=== PATIENT | female | born 1960 | race Caucasian/White ===

== ENCOUNTER 2020-11-01 06:37 | Observation (INO) ==
[2020-11-01] MEDS ORDERED: *HR* FentaNYL (PF) 100 MCG/2 ML VIAL ONE (06:44)
[2020-11-01] MEDS ORDERED: Lidocaine -MPF 2% 2 ML VIAL ONE (06:44)
[2020-11-01] MEDS ORDERED: Dexamethasone 4 MG/ML VIAL ONE (06:44)
[2020-11-01] MEDS ORDERED: *HR* Succinylcholine 200 MG/10 ML VIAL IVP ONE (06:44)
[2020-11-01] MEDS ORDERED: Ondansetron 4 MG/2 ML VIAL ONE (06:44)
[2020-11-01] MEDS ORDERED: *HR* Propofol 200 MG/20 ML VIAL IVP ONE (06:44)
[2020-11-01] MEDS ORDERED: Lidocaine -MPF 4% 5 ML AMPUL ONE (06:44)
[2020-11-01] MEDS ORDERED: *HR* Remifentanil 1 MG VIAL IVP ONE ×2 (06:45)
[2020-11-01] MEDS ORDERED: *HR* Rocuronium Bromide 50 MG/5 ML VIAL ONE (06:55)
[2020-11-01] MEDS ORDERED: CeFAZolin Syr 3,000MG/30 ML 3,000 MG/30 ML SYRINGE IVPB ONE (07:04)
[2020-11-01] MEDS ORDERED: Ondansetron 4 MG/2 ML VIAL IVP PRN ×2 (07:07→11:32)
[2020-11-01] MEDS ORDERED: *HR* HYDROmorphone PF 0.5 MG/0.5 ML SYRINGE IVP PRN (07:07)
[2020-11-01] MEDS ORDERED: *HR* OxyCODONE Immed Rel 5 MG TABLET PO PRN ×2 (07:07→11:32)
[2020-11-01] MEDS ORDERED: *HR* OxyCODONE ER (12 HR) 10 MG TABLET PO ONE (07:10)
[2020-11-01] MEDS ORDERED: *HR* Vasopressin 20 UNIT/ML VIAL ONE (07:13)
[2020-11-01] MEDS ORDERED: Ringers Solution, Lactated 1,000 ML IVC SCH ×3 (07:15→11:32)
[2020-11-01] MEDS ORDERED: Bacitracin 50,000 UNIT, Polymyxin B Sulfate 500,000 UNIT, Sodium Chloride IRRigation 1,... IR ONE (07:45)
[2020-11-01] MEDS ORDERED: *HR* PHENYLEPHRINE 1,000 MCG/10 ML SYRINGE IVP ONE ×2 (08:21→08:46)
[2020-11-01] MEDS ORDERED: *HR* HYDROMORPHONE 2 MG/ML VIAL ONE (10:32)
[2020-11-01] MEDS ORDERED: Acetaminophen 325 MG TABLET PO PRN (11:32)
[2020-11-01] MEDS ORDERED: Naloxone 0.4 MG/ML INJ IVP PRN (11:32)
[2020-11-01] MEDS: *HR* HYDROcodone/Acet 5/325 mg TABLET PO PRN ×2 (15:24→22:00)
[2020-11-01] MEDS: CeFAZolin 2 GM/120 ML BAG IVPB SCH (16:23)
[2020-11-01 16:39] LABS: Hematocrit 38.8 % (35.3-44.9); Hemoglobin 11.8 g/dL (11.5-15.4); Mean Corpuscular HGB Conc 30.4 g/dL (31.6-35.5); Mean Corpuscular Hemoglobin 25.8 pg (28.0-33.3); Mean Corpuscular Volume 84.7 fL (83.0-100.0); Mean Platelet Volume 9.6 fL (9.4-12.4); Platelet Count 322 K/mcL (140-400); Red Blood Count 4.58 M/mcL (3.82-4.97)
[2020-11-01 16:41] LABS: White Blood Count 14.4 K/mcL (4.3-11.1)
[2020-11-01 16:53] LABS: Alanine Aminotransferase 10 Units/L (7-52); Albumin 3.8 g/dL (3.5-5.7); Albumin/Globulin Ratio 1.4 (1.1-2.2); Alkaline Phosphatase 77 Units/L (34-104); Aspartate Amino Transferase 12 Units/L (13-39); BUN/Creatinine Ratio 23 (6-26); Bilirubin,Total 0.3 mg/dL (0.3-1.0); Blood Urea Nitrogen 21 mg/dL (8-23); Calcium 8.8 mg/dL (8.6-10.3); Carbon Dioxide 23 mEq/L (23-29); Chloride 101 mEq/L (98-107); Globulin 2.7 g/dL (2.4-3.5); Glucose 251 mg/dL (70-105); Osmolality,Calculated 289 (280-300); Potassium 4.5 mEq/L (3.5-5.1); Sodium 134 mEq/L (136-145); Total Protein 6.5 g/dL (6.4-8.9); eGFR For African Americans > 60 (> 60); eGFR For Non-African Americans > 60 (> 60)
[2020-11-01] MEDS: Artificial Tears SOLN 15 ML BOTTLE BOTH EYES SCH ×2 (18:23→22:01)
[2020-11-02] MEDS: CeFAZolin 2 GM/120 ML BAG IVPB SCH (00:13)
[2020-11-02] MEDS: lisinopriL 20 MG TABLET PO SCH (07:34)
[2020-11-02] MEDS: Artificial Tears SOLN 15 ML BOTTLE BOTH EYES SCH ×4 (07:37→22:22)
[2020-11-02] MEDS: *HR* HYDROcodone/Acet 5/325 mg TABLET PO PRN (10:42)
[2020-11-02] MEDS ORDERED: tiZANidine 4 MG TABLET PO PRN (11:43)
[2020-11-03] MEDS: lisinopriL 20 MG TABLET PO SCH (08:17)
[2020-11-03] MEDS: Artificial Tears SOLN 15 ML BOTTLE BOTH EYES SCH (08:17)
[2020-11-03 10:16] LABS: Estimated Average Glucose 146 mg/dl; Hemoglobin A1C 6.7 %
[2020-11-03 10:53] VITALS: BP 116/77
== END 2020-11-03 14:25 | disposition home or self-care (01) ==
LOC: 3NENU 06:37 → SAMDAY 06:37 → 3NENU 11:26
PROVIDERS: ADMIT Orthopaedic Surgery Orthopaedic Surgery of the Spine; ATTEND Orthopaedic Surgery Orthopaedic Surgery of the Spine